=== PATIENT | female | born 1960 ===

== ENCOUNTER → 2016-11-24 | Day surgery (SDC) | payer OTHER ==
[~2016-11-24] MED LIST: HYDROmorphone HCL PF 2 MG/ML VIAL ONE; KETOROLAC TROMETHAMINE 30 MG/ML (IVP) VIAL IV PUSH ONE; LACTATED RINGER'S 1000 ML INJ 1,000 ML ONE; LIDOCAINE 1%/EPINEPHrine 1:100,000 SOLN 50 ML VIAL ONE; MEPERIDINE HCL 25 MG/ML VIAL ONE; MIDAZOLAM HCL 2 MG/2 ML VIAL ONE; MORPHINE SULFATE 4 MG/ML INJ ONE; ONDANSETRON HCL 4 MG/2 ML VIAL IV PUSH ONE; PROPOFOL 200 MG/20 ML AMP IV ONE; SODIUM BICARBONATE 8.4% INJ 50 ML ONE; ceFAZolin 2 GM PREMIX 50 ML ONE
--- NOTE | 2016-11-26 06:19 | MP ---
cc: TONY CROSS M.D. DATE OF SURGERY 11/24/2016 PREOPERATIVE DIAGNOSIS Bilateral inner thigh, groin crease and perineal hidradenitis. POSTOPERATIVE DIAGNOSIS Bilateral inner thigh, groin crease and perineal hidradenitis. OPERATION Excision bilateral multiple areas of hidradenitis both thighs, both groin creases, both buttocks and perineal/perianal areas, leaving the right buttock open. Total approximately [address] Cross ANESTHESIA General. INDICATIONS This is a 56-year-old white female with numerous areas of acute and chronic hidradenitis, several pinhole openings, several large openings and purulent discharge particularly from the right groin. The patient was explained the overall nature of the disease, the surgery to remove the entire tissue down including some of the normal fat and closing the areas that can be approximated, leaving the larger areas open to heal secondarily. The patient is willing to go ahead with the surgery, understands the possible risks and complication of anesthesia and surgery in general. PROCEDURE The patient was brought to the operating room, was given supine position. Anesthesia was started. The patient was placed in leg stirrups with adequate padding. Prep and drape was done. Time-out was called and completed. Each area was palpated and marked with a marking pen removing the openings in the skin and surrounding glandular pocket. Two of the largest areas are on the right medial groin crease and right buttock just behind the anal opening. All the areas were injected with tumescent solution of lidocaine with epi and saline. They were excised directly from the skin, going into the normal fat tissue and maintaining the plane, removing most of the smaller and medium areas all in one piece. The larger areas needed to be first unroofed on the skin side and then looking for all the tracts and passages the gland-bearing tissue and the scar were removed. Hemostasis was completed with a combination of Bovie and 3-0 Vicryl suture ligatures. Most of the areas could be closed with a combination of 0 Vicryl and Prolene sutures. The right buttock posterior area is fairly large, approximately 6 x 8-cm and only a portion was able to be closed; the rest was left open. All the areas were cleaned. Sterile dressing was applied. The patient remained stable. Intraoperative blood loss 30-40 cc. No complications. signed, not fully reviewed MD PB Oakley/JENIFER /9:21 AM /6:09 AM PIPER
== END | disposition home or self-care (01) ==
LOC: ESDC 06:41
PROVIDERS: ATTEND Plastic Surgery
DX: L73.2 Hidradenitis suppurativa (principal)
CPT/HCPCS: 00400; 11462; 11470; 88305; J0690; J1170; J1885; J2175; J2250; J2270; J2405; J3010; J7120